=== PATIENT | female | born 1965 | race Caucasian/White ===

== ENCOUNTER 2016-12-12 13:26 | Emergency (ER) | payer OTHER ==
[2016-12-12 14:49] LABS: APPEARANCE HAZY (CLEAR); BILIRUBIN NEGATIVE (NEGATIVE); COLOR RED (YELLOW); GLUCOSE NEGATIVE (NEGATIVE); KETONE NEGATIVE (NEGATIVE); NITRITE NEGATIVE (NEGATIVE); PROTEIN TRACE mg/dL (NEGATIVE); UROBILINOGEN NORMAL (NORMAL)
[2016-12-12 14:50] LABS: BACTERIA FEW /hpf (NONE SEEN); RED CELLS - URINE >50 /hpf (0-5)
[2016-12-12 15:29] LABS: BASOPHILS 0.5 % (0-2); EOSINOPHILS 8.3 % (0-7); HEMATOCRIT 40.9 % (36.0-48.0); HEMOGLOBIN 13.7 g/dL (12-16); LYMPHOCYTES 33.5 % (15-50); MCH 30.7 pg (26.0-34.0); MCHC 33.5 g/dL (31.0-37.0); MCV 91.7 fL (80.0-100.0); MEAN PLATELET VOLUME 10.2 fL (7.4-10.4); MONOCYTES 7.2 % (2-11); NEUTROPHILS 50.5 % (40-80); PLATELET COUNT 227 10x3/uL (130-400); RBC 4.46 10x6/uL (4.00-5.40); RDW 12.5 % (11.5-14.5); WBC 6.1 10x3/uL (4.8-10.8)
[2016-12-12 15:44] LABS: ALBUMIN 4.3 g/dL (3.4-5.0); ANION GAP 11.2 mmol/L (8-16); BILIRUBIN - TOTAL 0.19 mg/dL (0.2-1.3); CALCIUM 9.8 mg/dL (8.5-10.1); CARBON DIOXIDE 27.4 mmol/L (21.0-32.0); POTASSIUM - SERUM 3.6 mmol/L (3.5-5.1)
== END 2016-12-12 16:55 | disposition home or self-care (01) ==
LOC: D.ER 13:26
PROVIDERS: Emergency Medicine
DX: R31.9 Hematuria, unspecified (principal); K85.90 Acute pancreatitis without necrosis or infection, unspecified; M06.9 Rheumatoid arthritis, unspecified; Z95.0 Presence of cardiac pacemaker

== ENCOUNTER 2016-12-27 02:06 | Day surgery (SDC) | payer OTHER ==
[2016-12-27 02:51] LABS: BASOPHILS 0.4 % (0-2); EOSINOPHILS 2.5 % (0-7); HEMATOCRIT 37.7 % (36.0-48.0); HEMOGLOBIN 12.8 g/dL (12-16); IMMATURE GRANULOCYTES 0.3 % (0-5); MCH 30.8 pg (26.0-34.0); MCV 90.6 fL (80.0-100.0); MEAN PLATELET VOLUME 10.1 fL (7.4-10.4); NEUTROPHILS 78.8 % (40-80); PLATELET COUNT 244 10x3/uL (130-400); RBC 4.16 10x6/uL (4.00-5.40); RDW 12.7 % (11.5-14.5); WBC 10.1 10x3/uL (4.8-10.8)
[2016-12-27 02:56] LABS: COLOR YELLOW (YELLOW)
[2016-12-27 02:57] LABS: AMORPHOUS SEDIMENT >1+ /lpf (NONE SEEN); APPEARANCE CLOUDY (CLEAR); BACTERIA FEW /hpf (NONE SEEN); BILIRUBIN NEGATIVE (NEGATIVE); EPITHELIAL CELLS NSEEN /hpf (0-5); GLUCOSE NEGATIVE (NEGATIVE); KETONE NEGATIVE (NEGATIVE); NITRITE NEGATIVE (NEGATIVE); PROTEIN NEGATIVE (NEGATIVE); SPECIFIC GRAVITY 1.015 (1.005-1.020); UROBILINOGEN NORMAL (NORMAL); WHITE CELLS - URINE 0-5 /hpf (0-5)
[2016-12-27 03:00] LABS: ANION GAP 13.6 mmol/L (8-16); CALCIUM 9.5 mg/dL (8.5-10.1); CARBON DIOXIDE 23.5 mmol/L (21.0-32.0); CREATININE - SERUM 1.3 mg/dL (0.6-1.3); POTASSIUM - SERUM 4.1 mmol/L (3.5-5.1)
[2016-12-27 04:00] VITALS: BP 103/61
--- NOTE | 2016-12-27 06:00 | NUR ---
PT ARRIVED FROM ER. ADMITTED TO DR HAQ IN ROOM 2106. IV INFUSING LEVAQUIN FROM ER. NS STARTED AFTER LEVAQUIN FINISHED. PT IS ALERT AND ORIENTED X 3.
[2016-12-27] MEDS ORDERED: PLAQUENIL200 MG PO (06:25)
[2016-12-27] MEDS ORDERED: ALEVE220 MG PO (06:26)
[2016-12-27] MEDS ORDERED: ARAVA10 MG PO (06:26)
[2016-12-27] MEDS ORDERED: AMITIZA24 MCG PO (06:27)
[2016-12-27] MEDS ORDERED: HYDROXYZINE HCL50 MG PO (06:27)
[2016-12-27] MEDS ORDERED: TOPAMAX100 MG PO (06:28)
[2016-12-27] MEDS ORDERED: ATIVAN2 MG PO (06:29)
[2016-12-27] MEDS ORDERED: LIDODERM 5 %1 PATCH TRANSDERM (06:30)
[2016-12-27] MEDS ORDERED: BACLOFEN10 MG PO (06:31)
[2016-12-27] MEDS ORDERED: PERCOCET 5-3251 TAB PO (06:32)
[2016-12-27] MEDS ORDERED: ORAPRED ODT10 MG/TAB PO (06:34)
--- NOTE | 2016-12-27 08:03 | NUR ---
AM ROUNDS - PT IN THE SHOWER AT THIS TIME. IV TO RIGHT AC, NS AT 100CC/HR (SL AT THIS TIME) NO NEEDS. BED AT LOWEST OSITION. CALL BARRY ON THE BED. SIDE RAILS UP X2. WILL CONTINUE TO MONITOR
[2016-12-27 08:18] VITALS: BP 104/53
[2016-12-27 12:38] VITALS: BP 106/71
[2016-12-27 13:02] VITALS: BP 111/71; BMI 30.5
[2016-12-27] MEDS ORDERED: HYDROCODON-ACE1 EAC7 PO (15:02)
[2016-12-27] MEDS ORDERED: FLOMAX0.4 MG PO (15:03)
--- NOTE | 2016-12-27 17:20 | NUR ---
D/C - VERBAL AND WRITTEN D/C INSTRUCTIONS GIVEN TO PT. IV TO RIGHT AC, CATH TIP INTACT, 2X2 DRESSING APPLIED AND SECURED WITH TAPE. PT TOLERATED WELL. PT LEFT FLOOR VIA WHEELCHAIR WITH FAMILY AND VOLUNTEER. WILL D/C
--- NOTE | 2016-12-28 12:43 | OP ---
PATIENT NAME: JANE PETERS MEDICAL RECORD: [id number] :65 LOCATION:D. D.2107 ADMISSION DATE:12/27/16 SURGEON: JAYLA HAQ MD DATE OF OPERATION: 12/27/2016 SURGEON: Jayla Haq MD ANESTHESIA: General anesthesia by Tyson Vela CRNA PREOPERATIVE DIAGNOSIS: Left proximal ureteral 5-mm stone. PROCEDURES: Cystoscopy, left ureteroscopy and stone extraction, left ureteral stent insertion 6-Georgian x 26 cm with string attached. FINDINGS: Radiolucent left proximal ureteral 5-mm stone. BLOOD LOSS: None. CLINICAL HISTORY: This is a 51-year-old female with a prior history of kidney stones. She has rheumatoid arthritis and her medications for RA predisposed her to kidney stones. She had 1 day of left flank pain and she came to the Emergency Room. She was found on CT scan to have a 5 mm stone in the proximal ureter. There are also some punctate left renal stones, which are nonobstructive. The right kidney has no stones present. She was admitted for pain control and now she comes to have the stone removed by ureteroscopy. She is allergic to CODEINE and GLUTEN. She was given Levaquin IV asset protection lead to the OR. DESCRIPTION OF PROCEDURE: The patient was given induction of general anesthesia. She was then placed in the dorsal lithotomy position and prepped and draped. A 21-Georgian cystoscope with 30-degree lens was used for visualization. She has single ureteral orifices with no bladder tumors seen. The stone is radiodense on fluoroscopy. A guidewire was placed up the left ureteral orifice and up into the left renal pelvis. The placement of the guidewire pushed the stone back into the kidney. The left ureteral orifice was dilated with a balloon dilator. This is a 21-Georgian x 4 cm in size. The ureteral orifice was dilated for a few seconds with 16 atmospheres of pressure and the balloon was deflated and removed. Going up with a rigid ureteroscope, I could not get all the way up to the renal pelvis. Therefore, I switched over to the ureteral access sheath, which was placed over the Sensor wire. The sheath was placed right up against the stone. The flexible ureteroscope was then placed once the stylet of the sheath was removed. We went in the sheath beside the Sensor wire. A 0-tip 4 wire basket was then placed around the stone. The stone would not enter into the sheath as it was too large. We slowly withdrew the sheath and the stone in the basket under direct vision keeping the Sensor wire in position. In this way the sheath was entirely removed and the stone came out. The stone was sent to pathology for stone analysis. The wire was then backloaded onto the cystoscope. Through the scope, we inserted a 6-Georgian x 26 cm ureteral stent with a string attached. Once the stent was in correct position, the wire was entirely withdrawn. The distal end of the stent was pushed into the bladder using a pusher. The bladder was emptied through the cystoscope and then the scope was entirely removed. The string was taped to the suprapubic area with a small strip of Tegaderm. The excess length of string was cut off. The patient will be going home today. She will follow up with her physician in [place], [place] to remove the stent in about 1 week's time. OPERATIVE REPORT [id number] LORRAINEJANE TRANSINT:[id number] Voice Confirmation ID: [id number] DOCUMENT ID: [id number] JAYLA HAQ MD at 1243 CC: [id number] DICTATION DATE: 12/27/16 1226 LOSS CONTROL MANAGER: 12/27/16 1237 DIS IN 12/27/16 [id number] [place] [id number]
[2017-01-10 12:11] LABS: CALCULI - CA OXALATE DIHYDRATE 35 % (()); CALCULI - CA OXALATE MONOHYDR 50 % (()); CALCULI - CALCIUM PHOSPHATE 15 % (()); CALCULI - COLOR Brown (()); CALCULI - SIZE 7x5x4 mm (())
== END 2016-12-27 17:23 | disposition home or self-care (01) ==
LOC: OBSVTIME → D.ER 02:06 → D.OPS 02:06 → D.M2 05:03 → D.ER 05:03 → D.M2 05:03 → OBSVTIME 05:03 → EDSTATUS 11:00 → D.OPS 17:23 → D.M2 17:23
PROVIDERS: Emergency Medicine; Urology
DX: N13.2 Hydronephrosis with renal and ureteral calculous obstruction (principal); Z95.0 Presence of cardiac pacemaker; M06.9 Rheumatoid arthritis, unspecified